=== PATIENT | male | born 1980 | race Caucasian/White ===

== ENCOUNTER 2016-12-09 21:31 | Emergency (ER) | payer OTHER ==
[2016-12-09] MEDS ORDERED: Sodium Chloride 0.9% 1,000 ML IV ONE (21:38)
[2016-12-09] MEDS ORDERED: fentaNYL 100 MCG/2 ML SDV IVPUSH ONE (21:41)
[2016-12-09] MEDS ORDERED: Ondansetron 4 MG/2 ML SDV IVPUSH ONE (21:41)
[2016-12-09] MEDS: fentaNYL 100 MCG/2 ML SDV IM STA (22:47)
--- NOTE | 2016-12-09 22:49 | EDM.PDOC ---
ED HPI Skin/Rash - General Chief Complaint: Laceration Stated Complaint: PT HURT RT HAND Time Seen by Provider: 12/09/16 21:40 Source: Reports: Patient History Limitations: Reports: No limitations - History of Present Illness INITIAL COMMENTS - FREE TEXT/NARRATIVE: History of present illness: [36-year-old male presents with acute onset of laceration to right wrist status post traumatic event banging on headlight out of vehicle at work. In light apparently had a short and his stork lead they had struck it and it would reengage in light up. Patient was banging on it when his hand went through his wrist was deeply lacerated by broken glass.] Review of systems: As per history of present illness and below otherwise all systems reviewed and negative. Past medical history: As per history of present illness and as reviewed below otherwise noncontributory. Surgical history: As per history of present illness and as reviewed below otherwise noncontributory. Social history: No reported history of drug or alcohol abuse. Family history: As per history of present illness and as reviewed below otherwise noncontributory. Physical exam: HEENT: Atraumatic, normocephalic, pupils reactive, negative for conjunctival pallor or scleral icterus, mucous membranes moist, throat clear, neck supple, nontender, trachea midline. Lungs: Clear to auscultation, breath sounds equal bilaterally, chest nontender. Heart: S1S2, regular, negative for clicks, rubs, or JVD. Abdomen: Soft, nondistended, nontender. Negative for masses or hepatosplenomegaly. Negative for costovertebral tenderness. Pelvis: Stable nontender. Genitourinary: Deferred. Rectal: Deferred. Extremities: Trauma to right hand left negative for trauma negative for cords or calf pain. Neurovascular unremarkable. Neuro: Awake, alert, oriented. Cranial nerves II through XII unremarkable. Cerebellum unremarkable. Motor and sensory unremarkable throughout. Exam nonfocal. 7 cm laceration involving flexor tendon and ulnar nerve with loss of sensation inability to flex through most of 2 through 5 are primarily affected, digit #5 without sensation, digit #4 with slightly more, digit #3 with slightly more, and digit #2 with the most sensation save digit #1. Right hand cleaned with prepped and severed edges of laceration loosely approximated to keep wound bed moist with 3.0 Prolene. Hemostasis was obtained dressing applied and the ulnar claw fashion. [facility] call center was called and I spoke to Dr. Sylvain Milian the hand specialist there who indicated to close edges as already achived and give patient his contact number for patient to call at [phone] in the morning, and he would get patient in that day which would be Tuesday12/10/16 and he would evaluate and schedule surgery for the beginning of next week. Diagnostics: [] Therapeutics: [Fentanyl 50 mcg x2, Zofran 8mg, Loose retention sutures, dressing into a ulnar claw hand fashion] Impression: [7 cm laceration involving the flexor tendon, and ulnar nerve] Plan: [Provide contact numbers for both Dr. Sylvain Milian and Dr. La Nena Solizgge the patient to followup with an a.m.] Definitive disposition and diagnosis as appropriate pending reevaluation and review of above. - Related Data Allergies Allergy/AdvReac Type Severity Reaction Status Date / Time No Known Allergies Allergy Verified 12/09/16 21:39 Home Meds: Ambulatory Orders Medication Instructions Recorded Confirmed . [No Known Home Meds] 12/09/16 12/09/16 Past Medical History HEENT History: Reports: None Cardiovascular History: Reports: None Respiratory History: Reports: None Gastrointestinal History: Reports: None Genitourinary History: Reports: None Neurological History: Reports: None Psychiatric History: Reports: None Endocrine/Metabolic History: Reports: None Hematologic History: Reports: None Dermatologic History: Reports: None - Infectious Disease History Infectious Disease History: Reports: None - Past Surgical History Male Surgical History: Reports: None Musculoskeletal Surgical History: Reports: Shoulder surgery Other Musculoskeletal Surgeries/Procedures:: pt reports multiple surgeries, ankle, foot shoulder, neck, knees Social & Family History - Family History Family Medical History: Noncontributory - Tobacco Use Smoking Status *Q: Current Every Day Smoker Years of Tobacco use: 20 Packs/Tins Daily: 1 - Recreational Drug Use Recreational Drug Use: No ED ROS GENERAL - Review of Systems Review Of Systems: See Below (History of present illness) ED EXAM, SKIN/RASH Exam: See Below (History of present illness) Course - Vital Signs Last Recorded V/S: Last Vital Signs Temp 36.2 C 12/09/16 21:39 Pulse 81 12/09/16 21:39 Resp 20 12/09/16 21:39 BP 112/56 L 12/09/16 21:39 Pulse Ox 96 12/09/16 21:39 - Orders/Labs/Meds Orders: Active Orders 24 hr Category Date Time Status Sodium Chloride 0.9% [Normal Saline] 1,000 ml Med 12/09/16 21:38 Active IV .Bolus Medication Orders Sodium Chloride (Normal Saline) 1,000 mls @ 999 mls/hr IV .Bolus ONE Stop: 12/09/16 22:38 Last Admin: 12/09/16 21:57 Dose: 999 mls/hr Meds: Medications Generic Name Dose Route Start Last Admin Trade Name Freq PRN Reason Stop Dose Admin Sodium Chloride 1,000 mls @ 999 mls/hr 12/09/16 21:38 12/09/16 21:57 Normal Saline IV 12/09/16 22:38 999 mls/hr .Bolus ONE Administration Discontinued Medications Generic Name Dose Route Start Last Admin Trade Name Freq PRN Reason Stop Dose Admin Fentanyl 50 mcg 12/09/16 21:41 12/09/16 21:58 Sublimaze IVPUSH 12/09/16 21:42 50 mcg ONETIME ONE Administration Ondansetron HCl 8 mg 12/09/16 21:41 12/09/16 21:59 Zofran IVPUSH 12/09/16 21:42 8 mg ONETIME ONE Administration Departure - Departure Time of Disposition: 22:49 Disposition: Home, Self-Care 01 Condition: good Clinical Impression: Laceration Forms: ED Department Discharge Additional Instructions: The following information is given to patients seen in the emergency department who are being discharged to home. This information is to outline your options for follow-up care. We provide all patients seen in our emergency department with a follow-up referral. The need for follow-up, as well as the timing and circumstances, are variable depending upon the specifics of your emergency department visit. If you don't have a primary care physician on staff, we will provide you with a referral. We always advise you to contact your personal physician following an emergency department visit to inform them of the circumstance of the visit and for follow-up with them and/or the need for any referrals to a consulting specialist. The emergency department will also refer you to a specialist when appropriate. This referral assures that you have the opportunity for follow-up care with a specialist. All of these measure are taken in an effort to provide you with optimal care, which includes your follow-up. Under all circumstances we always encourage you to contact your private physician who remains a resource for coordinating your care. When calling for follow-up care, please make the office aware that this follow-up is from your recent emergency room visit. If for any reason you are refused follow-up, please contact the [facility] Emergency Department at and asked to speak to the emergency department charge nurse. Take pain medication as needed and directed Take antibiotics as directed You'll be given to contact members and information for the provider in [place] as well as the local provider Contact both of them at 8:[address] Mcarthur is the local hand surgeon but she might feel that you require going to [place] and as such a specialist was contacted on your behalf and arrangements made for subsequent followup with them please rechallenge of both of these specialists so that your risk and be repaired in a time manner. Amna Milian [phone] [facility] Specialty Care - Plastic Surgery Professional Building [address] [place] [address], [address] [place] [address] - My Orders Last 24 Hours: My Active Orders 12/09/16 21:38 Sodium Chloride 0.9% [Normal Saline] 1,000 ml IV .Bolus - Assessment/Plan Last 24 Hours: My Active Orders 12/09/16 21:38 Sodium Chloride 0.9% [Normal Saline] 1,000 ml IV .Bolus
[2016-12-09] MEDS ORDERED: fentaNYL 100 MCG/2 ML SDV ONE (23:02)
[2016-12-09] MEDS ORDERED: fentaNYL 100 MCG/2 ML SDV IM STA (23:04)
[2016-12-09] MEDS ORDERED: Lidocaine 1% 20 ML MDV INJECT ONE (23:09)
[2016-12-10 00:01] VITALS: BP 147/72
[2016-12-10] MEDS: fentaNYL 100 MCG/2 ML SDV IM STA (00:05)
== END 2016-12-10 00:08 | disposition home or self-care (01) ==
LOC: MW.ED 21:31
DX: S64.01XA Injury of ulnar nerve at wrist and hand level of right arm, initial encounter (principal); S56.221A Laceration of other flexor muscle, fascia and tendon at forearm level, right arm, initial encounter; X58.XXXA Exposure to other specified factors, initial encounter; F17.210 Nicotine dependence, cigarettes, uncomplicated
CPT/HCPCS: 12002; 96361; 96372; 96374; 96375; 99283; J2405; J3010; J7040

== ENCOUNTER 2016-12-15 07:29 | Day surgery (SDC) | payer OTHER ==
[2016-12-15] MEDS ORDERED: Propofol 200 MG/20 ML SDV ONE (07:33)
[2016-12-15] MEDS ORDERED: fentaNYL 250 MCG/5 ML SDV ONE (07:33)
[2016-12-15] MEDS ORDERED: Lidocaine 2% 5 ML SDV ONE (07:33)
[2016-12-15] MEDS ORDERED: Midazolam 1 MG/ML 2 ML SDV ONE (07:33)
[2016-12-15] MEDS ORDERED: Ondansetron 4 MG/2 ML SDV ONE (07:33)
[2016-12-15] MEDS ORDERED: Acetaminophen/HYDROcodone 325-5 MG Tab PO PRN (08:00)
[2016-12-15] MEDS ORDERED: Lactated Ringers 1,000 ML IV SCH (08:00)
[2016-12-15] MEDS ORDERED: ceFAZolin 2 GM in Premix Bag 1 BAG IV ONE (08:00)
[2016-12-15] MEDS ORDERED: Bupivacaine 0.25%/EPINEPHrine 1:200,000 10 ML SDV INJECT ONE (08:00)
--- NOTE | 2016-12-15 08:34 | PCM.PREANE ---
Preanesthetic Assessment - Anesthesia/Transfusion/Family Hx Anesthesia History: Prior Anesthesia Reaction Type of Anesthesia Reaction: Anesthesia Awareness (x1) Family History of Anesthesia Reaction: No Transfusion History: No Prior Transfusion(s) - Review of Systems General: No Symptoms Pulmonary: No Symptoms Cardiovascular: No Symptoms Gastrointestinal: No symptoms Neurological: No Symptoms Other: Reports: None - Physical Assessment Height: 1.75 m Weight: 79.379 kg ASA Class: 2 Mental Status: Alert & Oriented x3 Airway Class: Mallampati = 2 Dentition: Reports: Normal Dentition Thyro-Mental Finger Breadths: 3 Mouth Opening Finger Breadths: 3 ROM/Head Extension: Full Lungs: Clear to auscultation, Normal respiratory effort Cardiovascular: Regular Rate, Regular Rhythm - Allergies Allergies/Adverse Reactions: Allergies Allergy/AdvReac Type Severity Reaction Status Date / Time No Known Allergies Allergy Verified 12/13/16 12:09 - Blood Blood Available: No - Anesthesia Plan Pre-Op Medication Ordered: None - Acknowledgements Anesthesia Type Planned: General Anesthesia Pt an Appropriate Candidate for the Planned Anesthesia: Yes Alternatives and Risks of Anesthesia Discussed w Pt/Guardian: Yes Pt/Guardian Understands and Agrees with Anesthesia Plan: Yes PreAnesthesia Questionnaire HEENT History: Reports: None Cardiovascular History: Reports: None Respiratory History: Reports: None Gastrointestinal History: Reports: None Genitourinary History: Reports: Renal calculus Musculoskeletal History: Reports: Fracture Other Musculoskeletal History: hx of fx ankle,left wrist, right foot, right knee , left elbow, left shoulder, right wrist, left wrist, bilateral clavicles, fingers, c5-6 and lumbar vertebrates Neurological History: Reports: Concussion Other Neuro History: hx of fx C 5-6, hx of fx lumbar vertebrate Psychiatric History: Reports: None Endocrine/Metabolic History: Reports: None Hematologic History: Reports: None Immunologic History: Reports: None Oncologic (Cancer) History: Reports: None Dermatologic History: Reports: None - Infectious Disease History Infectious Disease History: Reports: None - Past Surgical History Head Surgeries/Procedures: Reports: None HEENT Surgical History: Reports: None Cardiovascular Surgical History: Reports: None Respiratory Surgical History: Reports: None GI Surgical History: Reports: None Male Surgical History: Reports: None Endocrine Surgical History: Reports: None Neurological Surgical History: Reports: None Musculoskeletal Surgical History: Reports: Arthroscopic knee (bilateral few times each knee), ORIF Other Musculoskeletal Surgeries/Procedures:: bilateral knee arthroscopys, ORIF ankle, left wrist, right foot, right knee, left elbow, right wrist, left shoulder Oncologic Surgical History: Reports: None Dermatological Surgical History: Reports: None - SUBSTANCE USE Smoking Status *Q: Current Every Day Smoker (1 ppd) Tobacco Use Within Last Twelve Months: Cigarettes Recreational Drug Use History: No - HOME MEDS Home Medications: Home Meds . [No Known Home Meds] 12/09/16 [History] - CURRENT (IN HOUSE) MEDS Current Meds: Current Medications Hydrocodone Bitart/Acetaminophen ([place] 325-5 Mg) 1 tab PO Q4H PRN PRN Reason: Pain Lactated Ringer's (Ringers, Lactated) 1,000 mls @ 125 mls/hr IV ASDIRECTED LETICIA Last Admin: 12/15/16 08:00 Dose: 125 mls/hr Discontinued Medications Bupivacaine HCl/Epinephrine Bitart (Marcaine 0.25%/Epinephrine 1:200,000) 10 ml INJECT ONETIME ONE Stop: 12/15/16 08:01 Fentanyl (Sublimaze) Confirm Administered Dose 250 mcg .ROUTE .STK-MED ONE Stop: 12/15/16 07:34 Cefazolin Sodium/Dextrose 2 gm (/ Premix) 50 mls @ 100 mls/hr IV ONETIME ONE Stop: 12/15/16 08:29 Lidocaine (Xylocaine-Mpf 2%) Confirm Administered Dose 5 ml .ROUTE .STK-MED ONE Stop: 12/15/16 07:34 Midazolam HCl (Versed 1 Mg/Ml) Confirm Administered Dose 2 mg .ROUTE .STK-MED ONE Stop: 12/15/16 07:34 Ondansetron HCl (Zofran) Confirm Administered Dose 4 mg .ROUTE .STK-MED ONE Stop: 12/15/16 07:34 Propofol (Diprivan 20 Ml) Confirm Administered Dose 200 mg .ROUTE .STK-MED ONE Stop: 12/15/16 07:34
[2016-12-15] MEDS ORDERED: Bupivacaine 0.25%/EPINEPHrine 1:200,000 10 ML SDV ONE (09:09)
[2016-12-15] MEDS ORDERED: HYDROmorphone 2 MG/ML Syringe ONE ×2 (09:32→10:25)
[2016-12-15] MEDS ORDERED: Mineral Oil/Petrolatum Ophth Oint 3.5 GM Tube ONE (09:39)
[2016-12-15] MEDS ORDERED: HYDROmorphone 2 MG/ML Syringe IVPUSH PRN (09:50)
[2016-12-15] MEDS ORDERED: Labetalol 5 MG/ML 5 ML Syringe ONE (10:50)
[2016-12-15] MEDS ORDERED: diphenhydrAMINE 50 MG/ML SDV ONE (11:04)
[2016-12-15] MEDS ORDERED: Ketorolac 30 MG/ML SDV ONE (12:15)
[2016-12-15] MEDS: fentaNYL 100 MCG/2 ML SDV IVPUSH PRN ×2 (13:27→13:37)
--- NOTE | 2016-12-15 13:51 | PCM.POSTAN ---
POST ANESTHESIA ASSESSMENT - MENTAL STATUS Mental Status: alert, oriented - RESPIRATORY Respiratory Status: respiratory rate WNL, airway patent, O2 saturation stable - CARDIOVASCULAR CV Status: pulse rate WNL, blood pressure stable, elevated blood pressure - GASTROINTESTINAL GI Status: no symptoms - PAIN Pain Score: 4 (Pt sleeping currently) - POST OP HYDRATION Hydration Status: adequate & stable
--- NOTE | 2016-12-15 14:10 | PCM.OPNOTE ---
- General Post-Op/Procedure Note Date of Surgery/Procedure: 12/15/16 Operative Procedure(s): repair of 11 flexor tendons to the hand at the distal forearm/wrist level (all expect the FDS to the small) and repair of the median and ulnar nerves and repair of the ulnar artery with the microscope. Pre Op Diagnosis: right wrist laceration Post-Op Diagnosis: Same with all flexor tendons involved except the fds to the small and lacerations of the median and ulnar nerve and ulnar artery. Anesthesia Technique: General LMA, Local Primary Surgeon: Valerie Mcarthur Complications: None Condition: Good Free Text/Narrative:: Intake & Output 12/14/16 12/15/16 12/15/16 23:59 07:59 15:59 Intake Total 2900 Balance 2900
--- NOTE | 2016-12-15 15:37 | PCM48HPAN ---
Post Anesthesia Note - EVALUATION WITHIN 48HRS OF ANESTHETIC Vital Signs in Normal Range: Yes Patient Participated in Evaluation: Yes Respiratory Function Stable: Yes Airway Patent: Yes Cardiovascular Function Stable: Yes Hydration Status Stable: Yes Pain Control Satisfactory: Yes Nausea and Vomiting Control Satisfactory: Yes Mental Status Recovered: Yes
[2016-12-15 15:57] VITALS: BP 151/84
--- NOTE | 2016-12-22 12:08 | OR ---
SURGEON: ROGERIO ALLEN MD DATE OF PROCEDURE: 12/15/2016 PREOPERATIVE DIAGNOSIS: Right wrist laceration involving nerves, tendons, and arteries. POSTOPERATIVE DIAGNOSES: Right wrist laceration involving nerves, tendons, and arteries, with 11 flexor tendons involved all except the FDS to the small finger and lacerations of the median and ulnar nerves, and laceration and ulnar arteries, delayed presentation. Procedure: 1. Repair of the ulnar artery with use of the operating microscope 2. Repair of the ulnar nerve 3. Repair of the median nerve 4. Repair of the flexor policis longus tendon NOT in zone 2 5. Repair of the flexor digitorum profundus to the index, middle, ring and small fingers NOT in zone 2 (4 tendons) 6. Repair of the flexor digitorum superficialis to the index, middle and ring fingers NOT in zone 2 (3 tendons) 7. Repair of the flexor carpi radialis 8. Repair of the flexor carpi ulnaris 9. Repair of the palmaris longus tendon ANESTHESIA: General LMA with local. SECURITY PROJECT MANAGER: None. INDICATION: Mr. De Jesus is a 36-year-old gentleman, who is seen in the emergency room last week for evaluation of a flexor tendon and likely nerve laceration. The patient was initially set up to go to [place] but opted for follow up closer to home. On evaluation, the patient does not have any flexor function aside from the small finger. He is numb in the median and ulnar nerve distributions, but has good blood supply to the hand. Risks and benefits of evaluation and repair were discussed with him and he was in agreement to proceed. Risks were including, but not limited to, bleeding, infection, damage to underlying or overlying structures, possible need for future interventions and possible scarring, and need for prolonged therapy to regain normal function afterwards. He would like to proceed. NARRATIVE: After informed consent was obtained and placed on the chart, the patient was brought to the operating theater and laid in supine position. After adequate general anesthetic was obtained, the area was prepped and draped in normal fashion. Time-out was completed to confirm side and site. Local was infiltrated to augment anesthesia. Attention was then paid to prepping and draping of the arm with the Betadine cleansing solution. The arm was elevated and exsanguinated and tourniquet was inflated to 200 mmHg. Once this was completed, attention was then paid to dissection of the previously repaired laceration with a proximal extension along his tattoos and a distal carpal tunnel incision. Once adequately dissected, the wound was copiously irrigated with normal saline and 3 L cysto tubing. Once adequately irrigated each of the 11 flexor tendons that were lacerated were isolated, localized and the proximal and distal ends were tagged. Once all of the structures had been identified attention was then paid to repair in a stepwise fashion. The flexor digitorum profundus tendon to the middle, index, small and ring fingers were repaired and the flexor pollicis longus tendon was also repaired using a modified Stanley stitch with 4.0 FiberWire and a horizontal mattress additional suture for a 4 strand repair. Once the deep flexors had been repaired attention was then paid to repair of the ulnar artery with use of the microscope. 8-0 nylon sutures were used after irrigation of the artery and milking of the proximal clot.The tourniquet was first desufflated. The artery was appreciated to be free flowing. The tourniquet was reinflated after a 5 minute break and the artery was sutured, in an interrupted fashion. The tourniquet was then desufflated and appropriate flow was appreciated through the arterial anastomosis without leakage. The median and ulnar nerves were then approximated and a 6 mm nerve conduit was trimmed to fit and placed over the approximation and sutured in place using parachute 5-0 nylon sutures to grab the epineurium. This was done after the nerve was trimmed back to healthy pouting fascicles. Once both the median and ulnar nerves were reapproximated and repaired, attention was then paid to repair of the remaining flexor tendons. In a stepwise fashion the flexor digitorum superficialis to the middle, index, and ring finger was repaired. Once this was completed, the flexor carpi ulnaris and flexor carpi radialis were repaired. The final tendon repaired was the palmaris longus. Upon completion of the procedure, 11 flexor tendons to the hand at the wrist/forearm level were repaired along with the median nerve and ulnar nerve, and ulnar artery. The patient tolerated this well and the skin was repaired in a horizontal mattress fashion. Once completed, it was dressed with zeroform, fluffs and attention was then paid to the dorsal blocking splint with a thumb spica extension for the patient. The patient tolerated this well and all counts of needles were correct at the end of the case. FOLLOWUP INSTRUCTIONS: The patient will see us next week in clinic sooner if any problems, questions, or concerns and was given a prescription for pain control. SHAQUILLE / RUBY /[id number] MTDD
== END 2016-12-15 15:25 | disposition home or self-care (01) ==
LOC: MW.SDS 07:29
PROVIDERS: ATTEND Plastic Surgery
PROC: 0LQ70ZZ Repair Right Hand Tendon, Open Approach (ICD-10-PCS; principal; 2016-12-15)
PROC: 01Q50ZZ Repair Median Nerve, Open Approach (ICD-10-PCS; 2016-12-15)
PROC: 01Q40ZZ Repair Ulnar Nerve, Open Approach (ICD-10-PCS; 2016-12-15)
DX: S54.01XA Injury of ulnar nerve at forearm level, right arm, initial encounter (principal); S54.11XA Injury of median nerve at forearm level, right arm, initial encounter; S66.921A Laceration of unspecified muscle, fascia and tendon at wrist and hand level, right hand, initial encounter; S61.501A Unspecified open wound of right wrist, initial encounter; X58.XXXA Exposure to other specified factors, initial encounter; F17.200 Nicotine dependence, unspecified, uncomplicated
CPT/HCPCS: 25275; 35207; A9270; C9361; J1170; J1200; J1885; J2250; J2405; J3010; J7120; 01810; J2704

== ENCOUNTER 2017-11-28 17:28 | Emergency (ER) | payer SELFPAY ==
[2017-11-28 17:45] VITALS: BP 141/102
--- NOTE | 2017-11-28 17:50 | EDM.PDOC ---
<NaimaMirza - Last Filed: 11/28/17 17:47> ED HPI GENERAL MEDICAL PROBLEM - General Chief Complaint: Abdominal Pain Stated Complaint: STOMACH PAIN/HEADACHES Time Seen by Provider: 11/28/17 17:43 - History of Present Illness INITIAL COMMENTS - FREE TEXT/NARRATIVE: HISTORY AND PHYSICAL: History of present illness: Patient 37-year-old male presents with a concern of abdominal pain 2-3 weeks and no vomiting no diarrhea he also complains of a lump in the right inferior posterior auricular region. Review of systems: As per history of present illness and below otherwise all systems reviewed and negative. Past medical history: As per history of present illness and as reviewed below otherwise noncontributory. Surgical history: As per history of present illness and as reviewed below otherwise noncontributory. Social history: No reported history of drug or alcohol abuse. Family history: As per history of present illness and as reviewed below otherwise noncontributory. Physical exam: HEENT: Patient has what appears to be a nodule approximately 3 cm status somewhat indurated in the posterior inferior auricular area on the right normocephalic, pupils reactive, negative for conjunctival pallor or scleral icterus, mucous membranes moist, throat clear, neck supple, nontender, trachea midline. Lungs: Clear to auscultation, breath sounds equal bilaterally, chest nontender. Heart: S1S2, regular, negative for clicks, rubs, or JVD. Abdomen: Soft, nondistended, nontender. Negative for masses or hepatosplenomegaly. Negative for costovertebral tenderness. Pelvis: Stable nontender. Genitourinary: Deferred. Rectal: Deferred. Extremities: Atraumatic, negative for cords or calf pain. Neurovascular unremarkable. Neuro: Awake, alert, oriented. Cranial nerves II through XII unremarkable. Cerebellum unremarkable. Motor and sensory unremarkable throughout. Exam nonfocal. Diagnostics: CBC CMP UA urine drug screen CT soft tissue neck with IV contrast Therapeutics: None Impression: #1 abdominal pain #2 right neck mass probable adenopathy Definitive disposition and diagnosis as appropriate pending reevaluation and review of above. - Related Data Allergies Allergy/AdvReac Type Severity Reaction Status Date / Time No Known Allergies Allergy Verified 11/28/17 17:43 Home Meds: Home Meds . [No Known Home Meds] 11/28/17 [History] Past Medical History HEENT History: Reports: None Cardiovascular History: Reports: None Respiratory History: Reports: None Gastrointestinal History: Reports: None Genitourinary History: Reports: Renal Calculus Musculoskeletal History: Reports: Fracture Other Musculoskeletal History: hx of fx ankle,left wrist, right foot, right knee , left elbow, left shoulder, right wrist, left wrist, bilateral clavicles, fingers, c5-6 and lumbar vertebrates Neurological History: Reports: Concussion Other Neuro History: hx of fx C 5-6, hx of fx lumbar vertebrate Psychiatric History: Reports: None Endocrine/Metabolic History: Reports: None Hematologic History: Reports: None Immunologic History: Reports: None Oncologic (Cancer) History: Reports: None Dermatologic History: Reports: None - Infectious Disease History Infectious Disease History: Reports: None - Past Surgical History Head Surgeries/Procedures: Reports: None HEENT Surgical History: Reports: None Cardiovascular Surgical History: Reports: None Respiratory Surgical History: Reports: None GI Surgical History: Reports: None Male Surgical History: Reports: None Endocrine Surgical History: Reports: None Neurological Surgical History: Reports: None Musculoskeletal Surgical History: Reports: Arthroscopic Knee, ORIF Other Musculoskeletal Surgeries/Procedures:: bilateral knee arthroscopys, ORIF ankle, left wrist, right foot, right knee, left elbow, right wrist, left shoulder Oncologic Surgical History: Reports: None Dermatological Surgical History: Reports: None Social & Family History - Family History Family Medical History: Noncontributory - Tobacco Use Smoking Status *Q: Current Every Day Smoker (1 ppd) Years of Tobacco use: 20 Packs/Tins Daily: 1 - Recreational Drug Use Recreational Drug Use: No Drug Use in Last 12 Months: No ED ROS GENERAL - Review of Systems Review Of Systems: ROS reveals no pertinent complaints other than HPI. ED EXAM, GENERAL - Physical Exam Exam: See Below (dictation) Course - Vital Signs Last Recorded V/S: Last Vital Signs Temp 98.3 F 11/28/17 17:43 Pulse 118 H 11/28/17 17:43 Resp 18 11/28/17 17:43 BP 141/102 H 11/28/17 17:43 Pulse Ox 97 11/28/17 17:43 - Orders/Labs/Meds Orders: Active Orders 24 hr Category Date Time Status Soft Tissue Neck w Cont [CT] Stat Exams 11/28/17 17:46 Taken CULTURE URINE [RM] Stat Lab 11/28/17 18:10 Ordered DRUG SCREEN, URINE [URCHEM] Stat Lab 11/28/17 18:10 Ordered UA W/MICROSCOPIC [URIN] Stat Lab 11/28/17 18:10 Ordered Labs: Laboratory Tests 11/28/17 11/28/17 11/28/17 Range/Units 18:10 18:10 18:20 WBC 4.54 (4.0-11.0) K/uL RBC 5.36 (4.50-5.90) M/uL Hgb 18.7 H (13.0-17.0) g/dL Hct 50.9 H (38.0-50.0) % MCV 95.0 (80.0-98.0) fL MCH 34.9 H (27.0-32.0) pg MCHC 36.7 (31.0-37.0) g/dL RDW Std Deviation 43.2 (28.0-62.0) fl RDW Coeff of Corey 12 (11.0-15.0) % Plt Count 106 L (150-400) K/uL MPV 10.40 (7.40-12.00) fL Neut % (Auto) 44.5 L (48.0-80.0) % Lymph % (Auto) 43.8 H (16.0-40.0) % Bland % (Auto) 9.5 (0.0-15.0) % Eos % (Auto) 1.5 (0.0-7.0) % Baso % (Auto) 0.7 (0.0-1.5) % Neut # (Auto) 2.0 (1.4-5.7) K/uL Lymph # (Auto) 2.0 (0.6-2.4) K/uL Bland # (Auto) 0.4 (0.0-0.8) K/uL Eos # (Auto) 0.1 (0.0-0.7) K/uL Baso # (Auto) 0.0 (0.0-0.1) K/uL Nucleated RBC % 0.0 /100WBC Nucleated RBCs # 0 K/uL INR Sodium (136-148) mmol/L Potassium (3.5-5.1) mmol/L Chloride (98-107) mmol/L Carbon Dioxide (21.0-32.0) mmol/L BUN (7.0-18.0) mg/dL Creatinine (0.8-1.3) mg/dL Est Cr Clr Drug Dosing mL/min Estimated GFR (MDRD) ml/min Glucose (74-106) mg/dL Calcium (8.5-10.1) mg/dL Total Bilirubin (0.2-1.0) mg/dL AST (15-37) IU/L ALT (14-63) IU/L Alkaline Phosphatase (46-116) U/L Total Protein (6.4-8.2) g/dL Albumin (3.4-5.0) g/dL Globulin (2.0-3.5) g/dL Albumin/Globulin Ratio (1.3-2.8) Lipase (73-393) U/L Urine Color YELLOW Urine Appearance CLEAR Urine pH 6.0 (5.0-8.0) Ur Specific Jamison <= 1.005 (1.001-1.035) Urine Protein NEGATIVE (NEGATIVE) mg/dL Urine Glucose (UA) NEGATIVE (NEGATIVE) mg/dL Urine Ketones NEGATIVE (NEGATIVE) mg/dL Urine Occult Blood NEGATIVE (NEGATIVE) Urine Nitrite NEGATIVE (NEGATIVE) Urine Bilirubin NEGATIVE (NEGATIVE) Urine Urobilinogen 0.2 (<2.0) EU/dL Ur Leukocyte Esterase NEGATIVE (NEGATIVE) Urine RBC 0-2 (0-2/HPF) Urine WBC 0-2 (0-5/HPF) Ur Epithelial Cells OCCASIONAL (NONE-FEW) Urine Bacteria RARE (NEGATIVE) Urine Opiates Screen NEGATIVE (NEGATIVE) Ur Oxycodone Screen NEGATIVE (NEGATIVE) Urine Methadone Screen NEGATIVE (NEGATIVE) Ur Barbiturates Screen NEGATIVE (NEGATIVE) Ur Phencyclidine Scrn NEGATIVE (NEGATIVE) Ur Amphetamine Screen NEGATIVE (NEGATIVE) U Methamphetamines Scrn NEGATIVE (NEGATIVE) U Benzodiazepines Scrn NEGATIVE (NEGATIVE) U Cocaine Metab Screen NEGATIVE (NEGATIVE) U Marijuana (THC) Screen NEGATIVE (NEGATIVE) 11/28/17 11/28/17 Range/Units 18:20 18:20 WBC (4.0-11.0) K/uL RBC (4.50-5.90) M/uL Hgb (13.0-17.0) g/dL Hct (38.0-50.0) % MCV (80.0-98.0) fL MCH (27.0-32.0) pg MCHC (31.0-37.0) g/dL RDW Std Deviation (28.0-62.0) fl RDW Coeff of Corey (11.0-15.0) % Plt Count (150-400) K/uL MPV (7.40-12.00) fL Neut % (Auto) (48.0-80.0) % Lymph % (Auto) (16.0-40.0) % Bland % (Auto) (0.0-15.0) % Eos % (Auto) (0.0-7.0) % Baso % (Auto) (0.0-1.5) % Neut # (Auto) (1.4-5.7) K/uL Lymph # (Auto) (0.6-2.4) K/uL Bland # (Auto) (0.0-0.8) K/uL Eos # (Auto) (0.0-0.7) K/uL Baso # (Auto) (0.0-0.1) K/uL Nucleated RBC % /100WBC Nucleated RBCs # K/uL INR 1.06 Sodium 141 (136-148) mmol/L Potassium 3.5 (3.5-5.1) mmol/L Chloride 103 (98-107) mmol/L Carbon Dioxide 24.2 (21.0-32.0) mmol/L BUN 5 L (7.0-18.0) mg/dL Creatinine 0.8 (0.8-1.3) mg/dL Est Cr Clr Drug Dosing 127.65 mL/min Estimated GFR (MDRD) > 60.0 ml/min Glucose 89 (74-106) mg/dL Calcium 9.1 (8.5-10.1) mg/dL Total Bilirubin 1.0 (0.2-1.0) mg/dL AST 323 H (15-37) IU/L ALT 380 H (14-63) IU/L Alkaline Phosphatase 93 (46-116) U/L Total Protein 8.7 H (6.4-8.2) g/dL Albumin 4.3 (3.4-5.0) g/dL Globulin 4.4 H (2.0-3.5) g/dL Albumin/Globulin Ratio 1.0 L (1.3-2.8) Lipase 189 (73-393) U/L Urine Color Urine Appearance Urine pH (5.0-8.0) Ur Specific Jamison (1.001-1.035) Urine Protein (NEGATIVE) mg/dL Urine Glucose (UA) (NEGATIVE) mg/dL Urine Ketones (NEGATIVE) mg/dL Urine Occult Blood (NEGATIVE) Urine Nitrite (NEGATIVE) Urine Bilirubin (NEGATIVE) Urine Urobilinogen (<2.0) EU/dL Ur Leukocyte Esterase (NEGATIVE) Urine RBC (0-2/HPF) Urine WBC (0-5/HPF) Ur Epithelial Cells (NONE-FEW) Urine Bacteria (NEGATIVE) Urine Opiates Screen (NEGATIVE) Ur Oxycodone Screen (NEGATIVE) Urine Methadone Screen (NEGATIVE) Ur Barbiturates Screen (NEGATIVE) Ur Phencyclidine Scrn (NEGATIVE) Ur Amphetamine Screen (NEGATIVE) U Methamphetamines Scrn (NEGATIVE) U Benzodiazepines Scrn (NEGATIVE) U Cocaine Metab Screen (NEGATIVE) U Marijuana (THC) Screen (NEGATIVE) Meds: Medications Discontinued Medications Generic Name Dose Route Start Last Admin Trade Name Kelsey PRN Reason Stop Dose Admin Iopamidol 100 ml 11/28/17 19:44 11/28/17 19:44 Isovue-370 (76%) IVPUSH 11/28/17 19:45 75 ml ONETIME STA Administration Departure - Departure Disposition: Home, Self-Care 01 Clinical Impression: Parotid gland enlargement, Abdominal pain, Alcohol abuse, daily use - Discharge Information Referrals: PCP,None [Primary Care Provider] - Forms: ED Department Discharge Additional Instructions: Medication as prescribed Return if symptoms persist or worsen or new concerning symptoms develop ER referral for primary care within the next week for scheduling of MRI to further evaluate parotid lesion [facility] [address] [place] [address] The following information is given to patients seen in the emergency department who are being discharged to home. This information is to outline your options for follow-up care. We provide all patients seen in our emergency department with a follow-up referral. The need for follow-up, as well as the timing and circumstances, are variable depending upon the specifics of your emergency department visit. If you don't have a primary care physician on staff, we will provide you with a referral. We always advise you to contact your personal physician following an emergency department visit to inform them of the circumstance of the visit and for follow-up with them and/or the need for any referrals to a consulting specialist. The emergency department will also refer you to a specialist when appropriate. This referral assures that you have the opportunity for follow-up care with a specialist. All of these measure are taken in an effort to provide you with optimal care, which includes your follow-up. Under all circumstances we always encourage you to contact your private physician who remains a resource for coordinating your care. When calling for follow-up care, please make the office aware that this follow-up is from your recent emergency room visit. If for any reason you are refused follow-up, please contact the [facility] emergency department at and asked to speak to the emergency department charge nurse. <Jay Bettencourt - Last Filed: 11/28/17 20:25> ED HPI GENERAL MEDICAL PROBLEM - History of Present Illness INITIAL COMMENTS - FREE TEXT/NARRATIVE: I followed the patient in signout and agree with above, patient is in no distress alert interactive have seen the patient in the past another facility as a heavy drinker complaining of mild abdominal pain his liver function is elevated he is drinking up to nearly 2 L of whiskey daily. And he feels his abdominal pain is likely due to his drinking he is considering seeking treatment for this but is not concerned about starting treatment tonight. He has been following with [facility] for hand issues stemming from last spring. However he will need an actual primary care physician as CT is returned with possible mass radiology recommending MRI follow-up for the lesion on his neck which appears to be parotid gland involvement possibly early infection however no white count and no redness or warmth so strongly encouraging the patient to follow with primary care for MRI and consider alcohol treatment and omeprazole daily cutting back on alcohol initially. No fever nausea vomiting chills sweats no chest pain shortness of breath headache dizziness or palpitation no urine symptoms no tremors or hallucinations Gen. no acute distress HEENT NCAT PERRLA EOMI nares patent oropharynx clear neck supple no meningeal sign does have swelling on the right parotid areaSlightly movable mildly tender or uncomfortable with palpation no stridor Chest clear throughout CV regular rate and rhythm Abdomen soft nontender nondistended bowel sounds in all 4 quadrants no organomegaly Extremities full range of motion strength 5 out of 5 no edema [employer] alert nonfocal Assessment Early parotiditis versus parotid mass lesion Elevated liver function Alcohol use/abuse/dependence Plan Establish primary care Patient desires to work on cutting back on alcohol he has insight as to is drinking too muc and would like to work with primary care physician concerning this and possibly seeking formal treatment we did discuss can do sent her for [facility] or [facility] Patient will be referred for primary care to establish within the next week and to schedule MRI of this lesion Return if symptoms persist or worsen Follow-up with primary care as scheduled Bactrim double strength by mouth twice a day #20 no refill provided empirically Departure - Departure Time of Disposition: 20:23 Condition: Fair
[2017-11-28 19:14] LABS: CHLORIDE,CL 103 mmol/L (98-107); SODIUM,NA 141 mmol/L (136-148)
[2017-11-28] MEDS ORDERED: Iopamidol 755 Mg/ML 100 ML Bottle IVPUSH STA (19:44)
[2017-11-28] MEDS ORDERED: Sodium Chloride 0.9% 1,000 ML IV SCH (20:00)
--- NOTE | 2017-11-29 10:13 | CT ---
EXAM DATE: 11/28/17 PATIENT'S AGE: 37 Patient: CARLOS A ARNOLD Facility: [place], [place] Site . Site : [id number] Study: CT ST Neck WITH [id number]/[id number] 7:46:14 PM Ordering Physician: Naima Blue Final Report: INDICATION: Mass on right mastoid area. COMPARISON: None. TECHNIQUE: Axial CT of the soft tissue neck with IV contrast. Coronal sagittal reformat images. FINDINGS: A marker is placed over the area of palpable abnormality (axial image 27; coronal image 43). Underlying the marker, there is asymmetric enlargement of the right parotid gland as compared to the left. Relative increased low- attenuation change which may represent edema or underlying cystic lesions. No evidence of significant inflammatory change within the immediately adjacent fat. No intraglandular ductal dilatation. No evidence of obstructing sialolith within the right parotid duct. Normal left parotid gland. Normal symmetric bilateral submandibular glands. No adenopathy. Nasopharynx oropharynx are clear. No abnormal inflammation within the parapharyngeal fat pads or retropharyngeal space. Normal thickness of the epiglottis. Normal glottis with symmetric vocal cords. Lung apices are clear. Normal alignment of the cervical spine. No prevertebral soft tissue swelling. Visualized paranasal sinuses and mastoid air cells are clear. IMPRESSION: 1. Underlying the marker on the right face, there is asymmetric enlargement and low-attenuation change of the right parotid gland as compared to left. Overall, findings may represent edema and early changes of parotiditis. No evidence of an obstructing sialolith. An underlying partially cystic intra parotid mass cannot be completely excluded. Recommend follow-up with MRI for further evaluation 2. No adenopathy 3. Normal left parotid gland and bilateral submandibular glands 4. Normal deep soft tissues of the neck Please note that all CT scans at this facility use dose modulation, iterative reconstruction, and/or weight-based dosing when appropriate to reduce radiation dose to as low as reasonably achievable. Dictated by Asael Sheriff MD @ Nov 28 2017 7:55PM (Electronic Signature) Report Signed by Proxy. [facility]
== END 2017-11-28 20:42 | disposition home or self-care (01) ==
LOC: MW.ED 17:28
DX: K11.1 Hypertrophy of salivary gland (principal); R10.9 Unspecified abdominal pain; F17.210 Nicotine dependence, cigarettes, uncomplicated; F10.10 Alcohol abuse, uncomplicated
CPT/HCPCS: 36415; 70491; 80053; 80305; 81001; 83690; 85025; 85610; 87086; 99284; Q9967

== ENCOUNTER 2017-12-01 08:32 | Emergency (ER) | payer SELFPAY ==
[2017-12-01] MEDS ORDERED: Ondansetron 4 MG/2 ML SDV IVPUSH ONE (08:51)
--- NOTE | 2017-12-01 08:57 | EDM.PDOC ---
ED HPI GENERAL MEDICAL PROBLEM - General Chief Complaint: Abdominal Pain Stated Complaint: ABD PAIN Time Seen by Provider: 12/01/17 08:47 - History of Present Illness INITIAL COMMENTS - FREE TEXT/NARRATIVE: HISTORY AND PHYSICAL: History of present illness: Patient 37-year-old male was seen recently for parotitis who also had a concern of abdominal pain this is been a chronic intermittent problem he states is worse in last 24 hours with associated nausea and vomiting he did not fill his prescription for antibiotics from his prior visit he denies fever chills denies trauma denies other complaints patient does also have history of alcohol abuse Review of systems: As per history of present illness and below otherwise all systems reviewed and negative. Past medical history: As per history of present illness and as reviewed below otherwise noncontributory. Surgical history: As per history of present illness and as reviewed below otherwise noncontributory. Social history: No reported history of drug or alcohol abuse. Family history: As per history of present illness and as reviewed below otherwise noncontributory. Physical exam: HEENT: Atraumatic, normocephalic, pupils reactive, negative for conjunctival pallor or scleral icterus, mucous membranes moist, throat clear, neck supple, nontender, trachea midline. Lungs: Clear to auscultation, breath sounds equal bilaterally, chest nontender. Heart: S1S2, regular, negative for clicks, rubs, or JVD. Abdomen: Soft, nondistended, no localized tenderness no rebound no guarding. Negative for masses or hepatosplenomegaly. Negative for costovertebral tenderness. Pelvis: Stable nontender. Genitourinary: Deferred. Rectal: Deferred. Extremities: Atraumatic, negative for cords or calf pain. Neurovascular unremarkable. Neuro: Awake, alert, oriented. Cranial nerves II through XII unremarkable. Cerebellum unremarkable. Motor and sensory unremarkable throughout. Exam nonfocal. Diagnostics: CBC CMP lipase UA CT abdomen and pelvis Therapeutics: Normal saline 1 L bolus Zofran 4 mg Impression: #1 abdominal pain #2 vomiting #3 medical noncompliance #4 history of alcohol Definitive disposition and diagnosis as appropriate pending reevaluation and review of above. Abdomen Pain Score (Numeric/FACES): 6 - Related Data Allergies Allergy/AdvReac Type Severity Reaction Status Date / Time No Known Allergies Allergy Verified 12/01/17 08:39 Home Meds: Home Meds . [No Known Home Meds] 11/28/17 [History] Past Medical History HEENT History: Reports: None Cardiovascular History: Reports: None Respiratory History: Reports: None Gastrointestinal History: Reports: None Genitourinary History: Reports: Renal Calculus Musculoskeletal History: Reports: Fracture Other Musculoskeletal History: hx of fx ankle,left wrist, right foot, right knee , left elbow, left shoulder, right wrist, left wrist, bilateral clavicles, fingers, c5-6 and lumbar vertebrates Neurological History: Reports: Concussion Other Neuro History: hx of fx C 5-6, hx of fx lumbar vertebrate Psychiatric History: Reports: None Endocrine/Metabolic History: Reports: None Hematologic History: Reports: None Immunologic History: Reports: None Oncologic (Cancer) History: Reports: None Dermatologic History: Reports: None - Infectious Disease History Infectious Disease History: Reports: None - Past Surgical History Head Surgeries/Procedures: Reports: None HEENT Surgical History: Reports: None Cardiovascular Surgical History: Reports: None Respiratory Surgical History: Reports: None GI Surgical History: Reports: None Male Surgical History: Reports: None Endocrine Surgical History: Reports: None Neurological Surgical History: Reports: None Musculoskeletal Surgical History: Reports: Arthroscopic Knee, ORIF Other Musculoskeletal Surgeries/Procedures:: bilateral knee arthroscopys, ORIF ankle, left wrist, right foot, right knee, left elbow, right wrist, left shoulder Oncologic Surgical History: Reports: None Dermatological Surgical History: Reports: None Social & Family History - Family History Family Medical History: Noncontributory - Tobacco Use Smoking Status *Q: Current Every Day Smoker Years of Tobacco use: 21 Packs/Tins Daily: 1 - Caffeine Use Caffeine Use: Reports: Energy Drinks - Alcohol Use Days Per Week of Alcohol Use: 7 Number of Drinks Per Day: 6 Total Drinks Per Week: 42 - Recreational Drug Use Recreational Drug Use: No Drug Use in Last 12 Months: No ED ROS GENERAL - Review of Systems Review Of Systems: ROS reveals no pertinent complaints other than HPI. ED EXAM, GENERAL - Physical Exam Exam: See Below (dictation) Course - Vital Signs Last Recorded V/S: Last Vital Signs Temp 36.6 C 12/01/17 08:40 Pulse 110 H 12/01/17 08:40 Resp 16 12/01/17 08:40 BP 155/114 H 12/01/17 08:40 Pulse Ox 98 12/01/17 08:40 - Orders/Labs/Meds Orders: Active Orders 24 hr Category Date Time Status DRUG SCREEN, URINE [URCHEM] Stat Lab 12/01/17 08:50 Ordered UA W/MICROSCOPIC [URIN] Stat Lab 12/01/17 08:50 Ordered Sodium Chloride 0.9% [Normal Saline] 500 ml Med 12/01/17 09:00 Active IV .BOLUS Sodium Chloride 0.9% [Normal Saline] 500 ml Med 12/01/17 09:00 Active IV .BOLUS Medication Orders Sodium Chloride (Normal Saline) 500 mls @ 999 mls/hr IV .BOLUS LETICIA Last Admin: 12/01/17 09:05 Dose: 999 mls/hr Sodium Chloride (Normal Saline) 500 mls @ 999 mls/hr IV .BOLUS LETICIA Last Admin: 12/01/17 09:06 Dose: 999 mls/hr Labs: Laboratory Tests 12/01/17 12/01/17 Range/Units 08:59 08:59 WBC 4.44 (4.0-11.0) K/uL RBC 5.04 (4.50-5.90) M/uL Hgb 17.2 H (13.0-17.0) g/dL Hct 48.1 (38.0-50.0) % MCV 95.4 (80.0-98.0) fL MCH 34.1 H (27.0-32.0) pg MCHC 35.8 (31.0-37.0) g/dL RDW Std Deviation 42.7 (28.0-62.0) fl RDW Coeff of Corey 12 (11.0-15.0) % Plt Count 87 L (150-400) K/uL MPV 10.70 (7.40-12.00) fL Neut % (Auto) 58.2 (48.0-80.0) % Lymph % (Auto) 25.5 (16.0-40.0) % Mcduffie % (Auto) 14.4 (0.0-15.0) % Eos % (Auto) 1.4 (0.0-7.0) % Baso % (Auto) 0.5 (0.0-1.5) % Neut # (Auto) 2.6 (1.4-5.7) K/uL Lymph # (Auto) 1.1 (0.6-2.4) K/uL Mcduffie # (Auto) 0.6 (0.0-0.8) K/uL Eos # (Auto) 0.1 (0.0-0.7) K/uL Baso # (Auto) 0.0 (0.0-0.1) K/uL Nucleated RBC % 0.0 /100WBC Nucleated RBCs # 0 K/uL Sodium 137 (136-148) mmol/L Potassium 4.6 (3.5-5.1) mmol/L Chloride 99 (98-107) mmol/L Carbon Dioxide 27.6 (21.0-32.0) mmol/L BUN 3 L (7.0-18.0) mg/dL Creatinine 0.9 (0.8-1.3) mg/dL Est Cr Clr Drug Dosing 113.47 mL/min Estimated GFR (MDRD) > 60.0 ml/min Glucose 96 (74-106) mg/dL Calcium 9.8 (8.5-10.1) mg/dL Total Bilirubin 2.9 H (0.2-1.0) mg/dL AST 353 H (15-37) IU/L ALT 388 H (14-63) IU/L Alkaline Phosphatase 90 (46-116) U/L Total Protein 8.6 H (6.4-8.2) g/dL Albumin 4.5 (3.4-5.0) g/dL Globulin 4.1 H (2.0-3.5) g/dL Albumin/Globulin Ratio 1.1 L (1.3-2.8) Lipase 178 (73-393) U/L Ethyl Alcohol <3 mg/dL Meds: Medications Generic Name Dose Route Start Last Admin Trade Name Freq PRN Reason Stop Dose Admin Sodium Chloride 500 mls @ 999 mls/hr 12/01/17 09:00 12/01/17 09:05 Normal Saline IV 999 mls/hr .BOLUS LETICIA Administration Sodium Chloride 500 mls @ 999 mls/hr 12/01/17 09:00 12/01/17 09:06 Normal Saline IV 999 mls/hr .BOLUS LETICIA Administration Discontinued Medications Generic Name Dose Route Start Last Admin Trade Name Freq PRN Reason Stop Dose Admin Ondansetron HCl 4 mg 12/01/17 08:51 12/01/17 09:06 Zofran IVPUSH 12/01/17 08:52 4 mg ONETIME ONE Administration Departure - Departure Time of Disposition: 09:59 Disposition: Home, Self-Care 01 Condition: Good Clinical Impression: Abdominal pain, Alcohol abuse, Vomiting, Dehydration, Parotitis - Discharge Information Referrals: PCP,None [Primary Care Provider] - Forms: ED Department Discharge Additional Instructions: The following information is given to patients seen in the emergency department who are being discharged to home. This information is to outline your options for follow-up care. We provide all patients seen in our emergency department with a follow-up referral. The need for follow-up, as well as the timing and circumstances, are variable depending upon the specifics of your emergency department visit. If you don't have a primary care physician on staff, we will provide you with a referral. We always advise you to contact your personal physician following an emergency department visit to inform them of the circumstance of the visit and for follow-up with them and/or the need for any referrals to a consulting specialist. The emergency department will also refer you to a specialist when appropriate. This referral assures that you have the opportunity for followup care with a specialist. All of these measure are taken in an effort to provide you with optimal care, which includes your followup. Under all circumstances we always encourage you to contact your private physician who remains a resource for coordinating your care. When calling for followup care, please make the office aware that this follow-up is from your recent emergency room visit. If for any reason you are refused follow-up, please contact the [facility] emergency department at and asked to speak to the emergency department charge nurse. Protonix Zofran Bactrim as prescribed keep up follow-up appointments as discussed return as needed as discussed - My Orders Last 24 Hours: My Active Orders 12/01/17 08:50 DRUG SCREEN, URINE [URCHEM] Stat UA W/MICROSCOPIC [URIN] Stat 12/01/17 09:00 Sodium Chloride 0.9% [Normal Saline] 500 ml IV .BOLUS Sodium Chloride 0.9% [Normal Saline] 500 ml IV .BOLUS - Assessment/Plan Last 24 Hours: My Active Orders 12/01/17 08:50 DRUG SCREEN, URINE [URCHEM] Stat UA W/MICROSCOPIC [URIN] Stat 12/01/17 09:00 Sodium Chloride 0.9% [Normal Saline] 500 ml IV .BOLUS Sodium Chloride 0.9% [Normal Saline] 500 ml IV .BOLUS
[2017-12-01] MEDS ORDERED: Sodium Chloride 0.9% 500 ML IV SCH ×2 (09:00)
--- NOTE | 2017-12-01 09:36 | CT ---
CT of the abdomen and pelvis without contrast. HISTORY: Pain TECHNIQUE: Axial CT images were obtained of the abdomen and pelvis without contrast. Coronal and sagi ttal reconstructions obtained. FINDINGS: The lung bases are clear, no pleural effusion. There is moderate fatty infiltration of the liver. The spleen, adrenal glands, and pancreas appear un remarkable for noncontrast examination. The gallbladder appears normal. There is no bulky retroperit campbell lymphadenopathy. No abdominal ascites. There are a few nonobstructing renal calculi bilaterally measuring up to 4 mm. Renal cortical cysts a lso noted. No evidence of obstructive uropathy. The large and small bowel are normal in caliber without evidence of obstruction. The appendix appears normal. Minimal diverticulosis. There is no bulky pelvic lymphadenopathy. No free fluid. No free air . The urinary bladder appears normal. The visualized osseous structures appear normal. IMPRESSION: 1. No acute findings identified within the abdomen or pelvis. 2. Moderate fatty infiltration of the liver. 3. Nonobstructing nephrolithiasis bilaterally. 4. Minimal diverticulosis.
[2017-12-01 09:37] LABS: CHLORIDE,CL 99 mmol/L (98-107); SODIUM,NA 137 mmol/L (136-148)
[2017-12-01 10:42] VITALS: BP 152/97
== END 2017-12-01 10:40 | disposition home or self-care (01) ==
LOC: MW.ED 08:32
DX: E86.0 Dehydration (principal); K11.20 Sialoadenitis, unspecified; R10.9 Unspecified abdominal pain; F10.10 Alcohol abuse, uncomplicated; F17.210 Nicotine dependence, cigarettes, uncomplicated
CPT/HCPCS: 36415; 74176; 80053; 80305; 81001; 83690; 85025; 96361; 96374; 99284; G0480; J2405; J7040; 99283